=== PATIENT | female | born 1995 | race African-American/Black ===

== ENCOUNTER 2024-08-30 14:04 | Inpatient (IN) | payer BC, OTHER ==
[~2024-08-30] VITALS: Ht 152.4 cm; Wt 103.8 kg
[2024-08-30 15:36] LABS: Hematocrit 10.7 % (36.0-46.0); Mean Corpuscular Hgb Conc. 26.3 g/dL (32.0-36.0); White Blood Cell 4.5 10^3/uL (4.4-10.8)
[2024-08-30 15:38] LABS: Mean Corpuscular Hemoglobin 14.5 pg (28.0-32.0); Mean Corpuscular Volume 55.2 fL (80.0-100.0); Platelet Count (auto) 70 10^3/uL (140-450); Red Blood Cells 1.94 10^6/uL (4.0-5.20)
[2024-08-30 15:46] LABS: Chloride 106 mmol/L (98-107); Potassium 3.3 mmol/L (3.5-5.1); Sodium 138 mmol/L (136-145)
[2024-08-30 15:47] LABS: Anion Gap 10 (5-15); Calcium 9.3 mg/dL (8.7-10.4); Carbon Dioxide 22 mmol/L (20-31)
[2024-08-30 15:52] LABS: Blood Urea Nitrogen 10 mg/dL (9-23); Glucose 103 mg/dL (74-106)
[2024-08-30 16:03] LABS: Red Cell Distribution Width 28.3 % (11.8-14.3)
[2024-08-30 16:07] LABS: Hemoglobin 2.8 g/dL (12.2-16.2)
[2024-08-30 16:08] LABS: Basophils % (manual) 0 (0.0-2.0); Blast Cells 0; Eosinophils % (manual) 0 (0-7); Metamyelocytes % 0; Myelocytes % 0; Promyelocytes % 0; Reactive Lymphocytes 0
[2024-08-30 17:36] LABS: Anisocytosis Moderate; Band Neutrophils % (manual) 0; Hypochromia Marked; Lymphocytes % (manual) 28 (10.0-50.0); Monocytes % (manual) 6 (0-12); Platelet Estimate Decreased
[2024-08-30 17:37] LABS: Tear Drop Cells FEW
[2024-08-30] MEDS ORDERED: MORPHINE SULFATE INJ 2 MG/ml SYRG IV PRN (17:45)
[2024-08-30] MEDS ORDERED: ONDANSETRON HCL 4 MG/2 ML VIAL IV PRN (17:45)
[2024-08-30] MEDS ORDERED: DOCUSATE SOD 100 MG CAP PO PRN (17:45)
[2024-08-30] MEDS ORDERED: NITROGLYCERIN 0.4 MG SL TAB SL PRN (17:45)
[2024-08-30 18:26] VITALS: BP 138/60; PULSE 109; RESP 20; TEMP 98.4
[2024-08-30] MEDS: SODIUM CHLORIDE 0.9% 1,000 ML IV SCH (18:31)
[2024-08-30] MEDS: POTASSIUM CHL 20 Meq TABLET PO ONE (18:43)
[2024-08-30 18:45] VITALS: BP 125/62; PULSE 105; RESP 16; TEMP 98.1
[2024-08-30 19:20] VITALS: PULSE 110; RESP 21; O2SAT 100
[2024-08-30 20:02] LABS: Urine Bacteria FEW /hpf (None Seen); Urine Blood 3+ /uL (Negative); Urine Clarity Turbid (Clear); Urine Color Light-Brown (Yellow); Urine Protein, UAD 2+ (Negative); Urine Specific Gravity 1.013 (1.001-1.035); Urine Urobilinogen Normal (Negative); Urine WBC 3 /hpf (0 - 5); Urine pH 5.5 (5.0-9.0)
[2024-08-30 21:25] VITALS: BP 134/71; PULSE 118; RESP 24; TEMP 98.1
[2024-08-30 21:55] VITALS: BP 118/50; PULSE 103; RESP 16; TEMP 98.8
[2024-08-30 22:10] VITALS: BP 112/58; PULSE 101; RESP 19; TEMP 98.4
[2024-08-31] VITALS (10 sets, daily range): BP systolic 96–120; BP diastolic 37–62; PULSE 82–98; RESP 18–30; TEMP 98.1–98.7; O2SAT 96–100
[2024-08-31 05:05] LABS: Basophils # (auto) 0 10 ^3/uL (0-0.2); Eosinophils # (auto) 0 10 ^3/uL (0-0.8); Hemoglobin 7.3 g/dL (12.2-16.2); Lymphocytes # (auto) 1.2 10 ^3/uL (0.4-5.4); Neutrophils # (auto) 3.2 10 ^3/uL (1.6-8.6); White Blood Cell 4.8 10^3/uL (4.4-10.8)
[2024-08-31 05:08] LABS: Eosinophils % (auto) 0.7 % (0.0-7.0); Hematocrit 21.8 % (36.0-46.0); Mean Corpuscular Hemoglobin 23.6 pg (28.0-32.0); Mean Corpuscular Hgb Conc. 33.3 g/dL (32.0-36.0); Mean Corpuscular Volume 70.8 fL (80.0-100.0); Monocytes # (auto) 0.3 10 ^3/uL (0-1.3); Monocytes % (auto) 6.8 % (0.0-12.0); Neutrophils % (auto) 66.5 % (37.0-80.0); Nucleated Red Blood Cells % 0.1 %; Platelet Count (auto) 43 10^3/uL (140-450); Red Blood Cells 3.08 10^6/uL (4.0-5.20)
[2024-08-31 05:14] LABS: Red Cell Distribution Width 33.3 % (11.8-14.3)
[2024-08-31 05:22] LABS: Albumin 4.6 g/dL (3.2-4.8); Alkaline Phosphatase 86 U/L (46-116); Anion Gap 6 (5-15); Aspartate Aminotransferase < 8 U/L (13-40); BUN/Creatinine Ratio 9.5 (10.0-20.0); Bilirubin, Total 2.2 mg/dL (0.2-1.0); Blood Urea Nitrogen 7 mg/dL (9-23); Calcium 9.5 mg/dL (8.7-10.4); Carbon Dioxide 23 mmol/L (20-31); Chloride 108 mmol/L (98-107); Glucose 102 mg/dL (74-106); Potassium 4.1 mmol/L (3.5-5.1); Sodium 137 mmol/L (136-145)
[2024-08-31 05:23] LABS: Total Protein 7.2 g/dL (5.7-8.2)
[2024-08-31 05:28] LABS: Alanine Aminotransferase < 9 U/L (7-40)
[2024-08-31 08:33] LABS: Platelet Estimate Decreased
[2024-08-31 08:34] LABS: Anisocytosis Moderate; Hypochromia Moderate
[2024-08-31 08:38] LABS: Tear Drop Cells FEW
[2024-08-31] MEDS: ACETAMINOPHEN 325 MG TAB PO PRN (11:26)
[2024-08-31 15:29] LABS: INR 1.03 (0.9-1.15); Partial Thromboplastin Time 21.7 SEC (24.5-34.5); Prothrombin Time 10.9 sec (9.3-11.8)
[2024-08-31] MEDS: methylPREDNISolone SOD SUCC 125 MG/2 ML VL IV SCH (16:15)
[2024-09-01] VITALS (9 sets, daily range): BP systolic 102–125; BP diastolic 45–68; PULSE 80–97; RESP 18–26; TEMP 97.6–98.9; O2SAT 20–99
[2024-09-01 07:17] LABS: INR 1.06 (0.9-1.15); Partial Thromboplastin Time < 20.0 SEC (24.5-34.5); Prothrombin Time 11.2 sec (9.3-11.8)
[2024-09-01 07:28] LABS: % Iron Saturation 44.3 % (15-50)
[2024-09-01 07:32] LABS: Basophils # (auto) 0 10 ^3/uL (0-0.2); Eosinophils # (auto) 0 10 ^3/uL (0-0.8); Eosinophils % (auto) 0.1 % (0.0-7.0); Hemoglobin 7.1 g/dL (12.2-16.2)
[2024-09-01 07:42] LABS: Chloride 106 mmol/L (98-107); Sodium 136 mmol/L (136-145)
[2024-09-01 07:43] LABS: Anion Gap 9 (5-15); Calcium 10.3 mg/dL (8.7-10.4); Carbon Dioxide 21 mmol/L (20-31)
[2024-09-01 07:48] LABS: BUN/Creatinine Ratio 11.3 (10.0-20.0); Blood Urea Nitrogen 8 mg/dL (9-23); Glucose 133 mg/dL (74-106)
[2024-09-01 08:02] LABS: Basophils % (auto) 0.1 % (0.0-2.0); Lymphocytes # (auto) 0.5 10 ^3/uL (0.4-5.4); Lymphocytes % (auto) 10.2 % (10.0-50.0); Mean Corpuscular Hemoglobin 23.6 pg (28.0-32.0); Mean Corpuscular Hgb Conc. 33.7 g/dL (32.0-36.0); Monocytes # (auto) 0 10 ^3/uL (0-1.3); Monocytes % (auto) 0.5 % (0.0-12.0); Neutrophils # (auto) 4.6 10 ^3/uL (1.6-8.6); Neutrophils % (auto) 89.1 % (37.0-80.0); Nucleated Red Blood Cells % 0.4 %; Platelet Count (auto) 31 10^3/uL (140-450); White Blood Cell 5.1 10^3/uL (4.4-10.8)
[2024-09-01 08:03] LABS: Red Cell Distribution Width 32.5 % (11.8-14.3)
[2024-09-01 08:54] LABS: Platelet Estimate Decreased
[2024-09-01 09:05] LABS: Hepatitis B Surface Antibody Negative (Negative)
[2024-09-01 09:17] LABS: Hepatitis B Surface Antigen Negative (Negative)
[2024-09-01] MEDS ORDERED: ESTROGENS, CONJUGATED 25 MG VIAL IM SCH (10:00)
[2024-09-01] MEDS ORDERED: ONDANSETRON ODT 4 MG TAB PO PRN (10:00)
[2024-09-01] MEDS: IRON SUCROSE COMPLEX 100 ML IV SCH (15:54)
[2024-09-01] MEDS: ESTROGENS, CONJUGATED 25 MG VIAL IV SCH (18:44)
[2024-09-02] VITALS (8 sets, daily range): BP systolic 102–122; BP diastolic 42–64; PULSE 62–98; RESP 16–19; TEMP 97.8–98.6; O2SAT 94–99
[2024-09-02 08:06] LABS: Thyroxine (T4) 9.9 ug/dL (4.5-12.0)
[2024-09-02 08:49] LABS: Hematocrit 19.9 % (36.0-46.0); Mean Corpuscular Hemoglobin 23.8 pg (28.0-32.0); Mean Corpuscular Hgb Conc. 33.5 g/dL (32.0-36.0); White Blood Cell 10.8 10^3/uL (4.4-10.8)
[2024-09-02 08:57] LABS: Hemoglobin 6.7 g/dL (12.2-16.2); Red Cell Distribution Width 32.6 % (11.8-14.3)
[2024-09-02 08:59] LABS: Platelet Count (auto) 18 10^3/uL (140-450)
[2024-09-02 09:01] LABS: Basophils % (manual) 0 (0.0-2.0); Blast Cells 0; Eosinophils % (manual) 0 (0-7); Metamyelocytes % 0; Myelocytes % 0; Promyelocytes % 0; Reactive Lymphocytes 0
[2024-09-02] MEDS: GADOTERATE MEG 10 MMOL/20ml INJ (0.5MMOL/ml) IV ONE (09:36)
[2024-09-02] MEDS: GADOTERATE MEG 7.5 MMOL/15ml INJ (0.5MMOL/ml) IV ONE (09:37)
[2024-09-02 09:50] LABS: Band Neutrophils % (manual) 2; Lymphocytes % (manual) 5 (10.0-50.0); Monocytes % (manual) 2 (0-12); Platelet Estimate Markedly Decreased
[2024-09-02 09:52] LABS: Anisocytosis Marked; Hypochromia Slight; Polychromasia Slight; Tear Drop Cells FEW
[2024-09-02 11:07] LABS: Anti-Nuclear Antibody Direct Negative (Negative)
[2024-09-03] VITALS (15 sets, daily range): BP systolic 99–130; BP diastolic 48–78; PULSE 61–95; RESP 16–20; TEMP 97.7–98.4; O2SAT 92–100
[2024-09-03 08:03] LABS: Hematocrit 29.9 % (36.0-46.0); Hemoglobin 9.9 g/dL (12.2-16.2); Mean Corpuscular Hemoglobin 25.8 pg (28.0-32.0); Mean Corpuscular Hgb Conc. 33.1 g/dL (32.0-36.0); Mean Corpuscular Volume 78.1 fL (80.0-100.0); Red Blood Cells 3.83 10^6/uL (4.0-5.20); Red Cell Distribution Width 27.1 % (11.8-14.3); White Blood Cell 13.7 10^3/uL (4.4-10.8)
[2024-09-03 08:10] LABS: Basophils % (manual) 0 (0.0-2.0); Blast Cells 0; Eosinophils % (manual) 0 (0-7); Metamyelocytes % 0; Myelocytes % 0; Platelet Count (auto) 13 10^3/uL (140-450); Promyelocytes % 0; Reactive Lymphocytes 0
[2024-09-03 08:21] LABS: Anisocytosis Moderate; Band Neutrophils % (manual) 3; Lymphocytes % (manual) 7 (10.0-50.0); Monocytes % (manual) 3 (0-12)
[2024-09-03 08:22] LABS: Platelet Estimate Markedly Decreased; Tear Drop Cells FEW
[2024-09-03 08:23] LABS: Polychromasia Slight
[2024-09-03 12:06] LABS: CCP IgG/IgA Antibody 4 units (0-19)
[2024-09-03 18:22] LABS: Alanine Aminotransferase 46 U/L (7-40); Albumin 4.1 g/dL (3.2-4.8); Alkaline Phosphatase 77 U/L (46-116); Anion Gap 7 (5-15); Aspartate Aminotransferase 41 U/L (13-40); BUN/Creatinine Ratio 20.2 (10.0-20.0); Bilirubin, Direct 0.5 mg/dL (<0.3); Bilirubin, Total 1.4 mg/dL (0.2-1.0); Blood Urea Nitrogen 17 mg/dL (9-23); Calcium 9.7 mg/dL (8.7-10.4); Carbon Dioxide 27 mmol/L (20-31); Chloride 104 mmol/L (98-107); Glucose 113 mg/dL (74-106); Potassium 4.1 mmol/L (3.5-5.1); Sodium 138 mmol/L (136-145); Total Protein 6.4 g/dL (5.7-8.2)
[2024-09-03 18:34] LABS: Wright Stain Ready for Review
[2024-09-03 18:51] LABS: INR 1.16 (0.9-1.15); Prothrombin Time 12.2 sec (9.3-11.8)
[2024-09-04] VITALS (9 sets, daily range): BP systolic 108–128; BP diastolic 48–68; PULSE 51–77; RESP 18–20; TEMP 97.6–98.1; O2SAT 94–100
[2024-09-04 05:44] LABS: Basophils # (auto) 0 10 ^3/uL (0-0.2); Eosinophils # (auto) 0 10 ^3/uL (0-0.8); Nucleated Red Blood Cells % 0.1 %
[2024-09-04 05:46] LABS: Hematocrit 32.8 % (36.0-46.0); Hemoglobin 11.2 g/dL (12.2-16.2); Lymphocytes # (auto) 1.4 10 ^3/uL (0.4-5.4); Lymphocytes % (auto) 9.5 % (10.0-50.0); Mean Corpuscular Hemoglobin 27.2 pg (28.0-32.0); Mean Corpuscular Hgb Conc. 34.2 g/dL (32.0-36.0); Mean Corpuscular Volume 79.4 fL (80.0-100.0); Monocytes # (auto) 0.5 10 ^3/uL (0-1.3); Monocytes % (auto) 3.4 % (0.0-12.0); Neutrophils # (auto) 13.1 10 ^3/uL (1.6-8.6); Neutrophils % (auto) 87.1 % (37.0-80.0); Red Blood Cells 4.13 10^6/uL (4.0-5.20); Red Cell Distribution Width 24.9 % (11.8-14.3)
[2024-09-04 06:26] LABS: Platelet Count (auto) 18 10^3/uL (140-450)
[2024-09-04 08:13] LABS: Anisocytosis Moderate; Platelet Estimate Markedly Decreased; Polychromasia Slight; Tear Drop Cells FEW
[2024-09-05] VITALS (8 sets, daily range): BP systolic 104–157; BP diastolic 50–81; PULSE 50–75; RESP 17–20; TEMP 97.7–98.4; O2SAT 94–96
[2024-09-05 11:21] LABS: Folate (Folic Acid) 13.93 ng/mL (>5.38)
[2024-09-05] MEDS: LIDOCAINE 2%HCL (LOCAL ANESTH.) INJ 10ml MDV ONE (11:25)
[2024-09-05] MEDS: MIDAZOLAM HCL 2MG/2ML 2ml VIAL (1mg/ml) IV ONE (11:25)
[2024-09-05] MEDS: BUPIVACAINE HCL 0.25% P/F 10 ML VIAL ONE (11:25)
[2024-09-05] MEDS: fentaNYL CITRATE 100 MCG/2 ML VL IV ONE (11:25)
[2024-09-05 13:06] LABS: Dilute Prothrombin Time(dPT) 38.6 sec (0.0-47.6); PTT-LA 30.5 sec (0.0-43.5); dPT Confirm Ratio 1.11 Ratio (0.00-1.34); dRVVT 40.8 sec (0.0-47.0)
[2024-09-05 14:02] LABS: Basophils # (auto) 0 10 ^3/uL (0-0.2); Eosinophils # (auto) 0 10 ^3/uL (0-0.8); Hemoglobin 11.8 g/dL (12.2-16.2); Monocytes # (auto) 0.6 10 ^3/uL (0-1.3)
[2024-09-05 14:05] LABS: Hematocrit 35.1 % (36.0-46.0); Lymphocytes # (auto) 1.1 10 ^3/uL (0.4-5.4); Lymphocytes % (auto) 5.7 % (10.0-50.0); Mean Corpuscular Hemoglobin 27.1 pg (28.0-32.0); Mean Corpuscular Hgb Conc. 33.7 g/dL (32.0-36.0); Mean Corpuscular Volume 80.3 fL (80.0-100.0); Monocytes % (auto) 3.3 % (0.0-12.0); Neutrophils # (auto) 17.5 10 ^3/uL (1.6-8.6); Platelet Count (auto) 42 10^3/uL (140-450); Red Blood Cells 4.37 10^6/uL (4.0-5.20); White Blood Cell 19.2 10^3/uL (4.4-10.8)
[2024-09-05 14:06] LABS: Lupus Interpretation Comment: (.)
[2024-09-05 15:37] LABS: Anisocytosis Moderate
[2024-09-05 15:38] LABS: Ovalocytes FEW; Platelet Estimate Decreased; Tear Drop Cells FEW
[2024-09-05] MEDS: HYDROcodone-ACET 5/325MG TAB PO PRN (20:15)
[2024-09-06] VITALS (7 sets, daily range): BP systolic 108–137; BP diastolic 58–71; PULSE 51–81; RESP 17–20; TEMP 97.6–98.4; O2SAT 93–96
[2024-09-06 07:38] LABS: Mean Corpuscular Hemoglobin 26.9 pg (28.0-32.0); White Blood Cell 18.5 10^3/uL (4.4-10.8)
[2024-09-06 07:40] LABS: Hematocrit 35.2 % (36.0-46.0); Mean Corpuscular Hgb Conc. 34.1 g/dL (32.0-36.0); Platelet Count (auto) 60 10^3/uL (140-450); Red Blood Cells 4.45 10^6/uL (4.0-5.20); Red Cell Distribution Width 26.3 % (11.8-14.3)
[2024-09-06 07:43] LABS: Basophils % (manual) 0 (0.0-2.0); Blast Cells 0; Eosinophils % (manual) 0 (0-7); Metamyelocytes % 0; Myelocytes % 0; Promyelocytes % 0; Reactive Lymphocytes 0
[2024-09-06 07:55] LABS: Alanine Aminotransferase 60 U/L (7-40); Albumin 3.7 g/dL (3.2-4.8); Alkaline Phosphatase 65 U/L (46-116); Anion Gap 6 (5-15); Aspartate Aminotransferase 16 U/L (13-40); BUN/Creatinine Ratio 20.2 (10.0-20.0); Bilirubin, Total 1.5 mg/dL (0.2-1.0); Blood Urea Nitrogen 19 mg/dL (9-23); Calcium 9.5 mg/dL (8.7-10.4); Carbon Dioxide 29 mmol/L (20-31); Chloride 103 mmol/L (98-107); Glucose 135 mg/dL (74-106); Potassium 4.3 mmol/L (3.5-5.1); Sodium 138 mmol/L (136-145); Total Protein 5.9 g/dL (5.7-8.2)
[2024-09-06 08:06] LABS: Haptoglobin 160 mg/dL (33-278)
[2024-09-06 09:01] LABS: Band Neutrophils % (manual) 1; Lymphocytes % (manual) 4 (10.0-50.0); Monocytes % (manual) 2 (0-12)
[2024-09-06 09:02] LABS: Anisocytosis Slight; Platelet Estimate Decreased; Tear Drop Cells FEW
[2024-09-06 09:03] LABS: Ovalocytes FEW
[2024-09-07 01:00] VITALS: BP 109/58; PULSE 67; RESP 16; TEMP 97.9; O2SAT 94
[2024-09-07 05:00] VITALS: BP 106/62; PULSE 89; RESP 16; TEMP 97.8; O2SAT 100
[2024-09-07 08:50] VITALS: BP 111/63; PULSE 82; RESP 20; TEMP 97.9; O2SAT 96
[2024-09-07 08:50] LABS: Basophils # (auto) 0 10 ^3/uL (0-0.2); Eosinophils # (auto) 0 10 ^3/uL (0-0.8); Hematocrit 37.2 % (36.0-46.0); Hemoglobin 12.2 g/dL (12.2-16.2); Lymphocytes % (auto) 4.2 % (10.0-50.0); Mean Corpuscular Hemoglobin 26.9 pg (28.0-32.0); Mean Corpuscular Hgb Conc. 32.9 g/dL (32.0-36.0); Mean Corpuscular Volume 81.6 fL (80.0-100.0); Monocytes # (auto) 0.8 10 ^3/uL (0-1.3); Monocytes % (auto) 3.4 % (0.0-12.0); Neutrophils # (auto) 21.3 10 ^3/uL (1.6-8.6); Neutrophils % (auto) 92.4 % (37.0-80.0); Nucleated Red Blood Cells % 0.2 %; Platelet Count (auto) 73 10^3/uL (140-450); Red Blood Cells 4.55 10^6/uL (4.0-5.20); White Blood Cell 23.1 10^3/uL (4.4-10.8)
[2024-09-07 08:53] LABS: Red Cell Distribution Width 25.4 % (11.8-14.3)
[2024-09-07 09:30] LABS: Anisocytosis Moderate; Platelet Estimate Decreased
[2024-09-07 09:31] LABS: Polychromasia Slight
[2024-09-07 09:32] LABS: Ovalocytes FEW
[2024-09-07] MEDS ORDERED: FAMO20TA10 PO (10:10)
[2024-09-07] MEDS ORDERED: PRED20TA2 PO (10:10)
[2024-09-07 13:00] VITALS: BP 112/68; PULSE 77; RESP 20; TEMP 98.1; O2SAT 94
[2024-09-07 18:06] LABS: Fibrin Degredation Products <5 ug/mL (<5)
== END 2024-09-07 12:34 | disposition home or self-care (01) | DRG 812 ==
LOC: ER 14:16 → TELE 17:41 → TELE-CENTR 08-31 11:42 → CENTRAL 09-01 22:19
PROVIDERS: ADMIT Internal Medicine; ATTEND Internal Medicine
PROC: 30233N1 Transfusion of Nonautologous Red Blood Cells into Peripheral Vein, Percutaneous Approach (ICD-10-PCS; 2024-08-30)
PROC: 30233R1 Transfusion of Nonautologous Platelets into Peripheral Vein, Percutaneous Approach (ICD-10-PCS; 2024-09-03)
PROC: 079T3ZX Drainage of Bone Marrow, Percutaneous Approach, Diagnostic (ICD-10-PCS; principal; 2024-09-05)
DX: D50.9 Iron deficiency anemia, unspecified (principal); D61.818 Other pancytopenia; D69.3 Immune thrombocytopenic purpura; C85.90 Non-Hodgkin lymphoma, unspecified, unspecified site; Z68.41 Body mass index [BMI] 40.0-44.9, adult; E87.6 Hypokalemia; N92.0 Excessive and frequent menstruation with regular cycle; E66.01 Morbid (severe) obesity due to excess calories; K80.20 Calculus of gallbladder without cholecystitis without obstruction
CPT/HCPCS: 10005; 36415; 36430; 72192; 74176; 74183; 76700; 76856; 77012; 80048; 80053; 81001; 82248; 82607; 82746; 83010; 83540; 83550; 83615; 84436; 84443; 85007; 85025; 85027; 85045; 85362; 85384; 85610; 85613; 85670; 85705; 85730; 85732; 86038; 86200; 86703; 86706; 86803; 86850; 86880; 86900; 86901; 86920; 87340; 99291; G0378; J1756; J2003; J2250; J3490

== ENCOUNTER 2025-09-24 12:12 | Inpatient (IN) | payer BC ==
[~2025-09-24] VITALS: Ht 152.4 cm; Wt 106.2 kg
[2025-09-24] VITALS (8 sets, daily range): BP systolic 134–149; BP diastolic 74–84; PULSE 68–94; RESP 15–21; TEMP 97.7–98.8; O2SAT 99–100
[2025-09-24] MEDS: OCTREOTIDE ACETATE 500 MCG in SODIUM CHL 0.9% 99 ML IV SCH (02:27)
[~2025-09-24 12:12] MED LIST: FAMO20TA10 PO; PRED20TA2 PO
--- NOTE | 2025-09-24 13:22 | ED.PDOC ---
History of Present Illness HPI Comments This is a 30-year-old female, with a PMHx of Anemia, who presents to the ED with a chief complaint of wellness check. Patient states she was seen by her PCP recently, and told her hemoglobin levels are low. Patient reports she feels similar to how she did last year when she was diagnosed with severe anemia. Patient has no further complaints at this time and otherwise denies further associated symptoms of LOC, dizziness, weakness, fatigue, fever, or chills. Chief Complaint: Abnormal LAB's Time Seen by MD: 12:40 Primary Care Provider: MK Reviewed Notes: Medications, Allergies Allergies: Coded Allergies: NO KNOWN ALLERGIES (Unverified , 08/30/24) Home Meds Active Scripts Famotidine (PEPCID TABLET) 20 Mg Tb, 1 TAB PO BID for 30 Days, #60 TAB 1 Refill Prov:ROBIN NEUMANN MD 09/07/24 Prednisone (Prednisone) 20 Mg Tab, 20 MG PO TID for 20 Days, #120 MG Prov:ROBIN NEUMANN MD 09/07/24 Information Source: Patient Mode of Arrival: Ambulatory Severity: Moderate Duration: Since onset Past Medical History PAST MEDICAL HISTORY: Anemia Surgical History: Denies all surgeries T[place] MARSHAL History: No Pertinent [place] MARSH[place] History Social History Smoker: Non-Smoker Alcohol: Denies ETOH Use Drugs: Denies Drug Use Constitutional: denies: chills, diaphoresis, fatigue, fever, malaise, sweats, weakness, others EENTM: denies: blurred vision, double vision, ear bleeding, ear discharge, ear drainage, ear pain, ear ringing, eye pain, eye redness, hearing loss, mouth pain, mouth swelling, nasal discharge, nose bleeding, nose congestion, nose pain, photophobia, tearing, throat pain, throat swelling, voice changes, others Respiratory: denies: cough, hemoptysis, orthopnea, SOB at rest, shortness of breath, SOB with excertion, stridor, wheezing, others Cardiovascular: denies: chest pain, dizzy spells, diaphoresis, Dyspnea on exertion, edema, irregular heart beat, left arm pain, lightheadedness, palpitations, PND, syncope, others Gastrointestinal: denies: abdomen distended, abdominal pain, blood streaked bowels, constipated, diarrhea, dysphagia, difficulty swallowing, hematemesis, melena, nausea, poor appetite, poor fluid intake, rectal bleeding, rectal pain, vomiting, others Genitourinary: denies: abnormal vagina bleeding, burning, dyspareunia, dysuria, flank pain, frequency, hematuria, incontinence, pain, , vagina discharge, urgency, others Neurological: denies: dizziness, fainting, headache, left sided numbness, left sided weakness, numbness, paresthesia, pre-existing deficit, right sided numbness, right sided weakness, seizure, speech problems, tingling, tremors, weakness, others Musculoskeletal: denies: back pain, gout, joint pain, joint swelling, muscle pain, muscle stiffness, neck pain, others Integumetry: denies: bruises, change in color, change in hair/nails, dryness, laceration, lesions, lumps, rash, wounds, others Allergic/Immunocompromised: denies: Difficulty Healing, Frequent Infections, Hives, Itching, others Hematologic/Lymphatic: denies: anemia, blood clots, easy bleeding, easy bruising, swollen glands, others Endocrine: denies: excessive hunger, excessive sweating, excessive thirst, excessive urination, flushing, intolerance to cold, intolerance to heat, unexplained weight gain, unexplained weight loss, others Psychiatric: denies: anxiety, bipolar disorder, depression, hopeless, panic disorder, schizophrenia, sleepless, suicidal, others All Other Systems: Reviewed and Negative Physical Exam General Appearance: Moderate Distress HEENT: Normal ENT Inspection, Pharynx Normal, TMs Normal Neck: Full Range of Motion, Non-Tender, Normal, Normal Inspection Respiratory: Chest Non-Tender, Lungs Clear, No Accessory Muscle Use, No Respiratory Distress, Normal Breath Sounds Cardiovascular: No Edema, No JVD, No Murmur, No Gallop, Normal Peripheral Pulses, Regular Rate/Rhythm Breast Exam: Deferred Gastrointestinal: No Organomegaly, Non Tender, No Pulsatile Mass, Normal Bowel Sounds, Soft Genitalia: Deferred Pelvic: Deferred Rectal: Deferred Extremities: No calf tenderness, Normal capillary refill, Normal inspection, Normal range of motion, Non-tender, No pedal edema Musculoskeletal : Apperance: Normal Neurologic: Alert, poultry farmer II-XII nml as Tested, No Motor Deficits, Normal Affect, Normal Mood, No Sensory Deficits Cerebellar Function: Normal Reflexes: Normal Skin: Pallor Peripheral Pulses: 3+ Radial (R), 3+ Radial (L) Lymphatic: No Adenopathy Was a procedure done? Was a procedure done?: No Differential Dx Considerations may include: Anemia X-Ray, Labs, Meds, VS Vital Signs Date Time Temp Pulse Resp B/P (MAP) Pulse Ox O2 Delivery O2 Flow Rate FiO2 09/24/25 12:13 98.7 116 16 137/80 97 98.7 Lab Test 09/24/25 14:05 Range/Units White Blood Count 9.4 4.4-10.8 10^3/uL Red Blood Count 3.62 L 4.0-5.20 10^6/uL Hemoglobin 5.5 *L 12.2-16.2 g/dL Hematocrit 20.3 L 36.0-46.0 % Mean Corpuscular Volume 56.0 L 80.0-100.0 fL Mean Corpuscular Hemoglobin 15.2 L 28.0-32.0 pg Mean Corpuscular Hemoglobin Concent 27.2 L 32.0-36.0 g/dL Red Cell Distribution Width 25.8 H 11.8-14.3 % Platelet Count 555 H 140-450 10^3/uL Mean Platelet Volume 8.6 6.9-10.8 fL Neutrophils (%) (Auto) 69.2 37.0-80.0 % Lymphocytes (%) (Auto) 21.9 10.0-50.0 % Monocytes (%) (Auto) 7.3 0.0-12.0 % Eosinophils (%) (Auto) 0.7 0.0-7.0 % Basophils (%) (Auto) 0.9 0.0-2.0 % Neutrophils # (Auto) 6.5 1.6-8.6 10 ^3/uL Lymphocytes # (Auto) 2.1 0.4-5.4 10 ^3/uL Monocytes # (Auto) 0.7 0-1.3 10 ^3/uL Eosinophils # (Auto) 0.1 0-0.8 10 ^3/uL Basophils # (Auto) 0.1 0-0.2 10 ^3/uL Nucleated Red Blood Cells 0.5 % Platelet Estimate Increased Hypochromasia (manual) Marked Anisocytosis (manual) Moderate Microcytosis Marked Ovalocytes Few Stomatocytes Few Sodium Level 140 136-145 mmol/L Potassium Level 3.8 3.5-5.1 mmol/L Chloride Level 106 98-107 mmol/L Carbon Dioxide Level 26 20-31 mmol/L Anion Gap 8 5-15 Blood Urea Nitrogen 11 9-23 mg/dL Creatinine 0.80 0.550-1.02 mg/dL Glomerular Filtration Rate Calc 102 >90 mL/min BUN/Creatinine Ratio 13.8 10.0-20.0 Serum Glucose 100 74-106 mg/dL Calcium Level 8.9 8.7-10.4 mg/dL Patient alert. Vitals stable. States that she has a anemia. Answering questions. Ambulating. Denies any bleeding. Last time she had blood transfusion was year ago. Hemoglobin is low. Establish intravenous access. Was given blood transfusion. Explained to the patient. Continue monitoring. Time of 1ST Reevaluation: 14:00 Reevaluation 1ST: Unchanged Patient Education/Counseling: Diagnosis, Treatment Family Education/Counseling: No Family Present SEPSIS Sepsis Screen Date sepsis recognized/suspect: Sep 24, 2025 Time Sepsis recognized/suspect: 1213 Recent Procedure: No On Antibiotic Therapy: No Respiratory Rate >20: No Heart Rate >90: Yes Temp<36 C (96.8 F) or >38.3 C: No SBP <90 or MAP <65 mmHG: No New Acute Mental Status Change: No Is the patient on CPAP, BIPAP,: No Physician Orders Urinalysis (09/24/25 13:59) Vital Signs Date Time Temp Pulse Resp B/P (MAP) Pulse Ox O2 Delivery O2 Flow Rate FiO2 09/24/25 12:13 98.7 116 16 137/80 97 98.7 Laboratory Tests Test 09/24/25 14:05 White Blood Count 9.4 10^3/uL (4.4-10.8) Departure 1 Departure Time of Disposition: 15:12 Impression: Primary Impression: Severe anemia Disposition: ADMITTED INPATIENT Admit to: Med Surg Condition: Guarded Critical Care Note Critical Care Time?: Yes (90 min-critical care time only) Stability Stability form required: No Heart Score Heart Score: Heart Score Response (Comments) Value History N/A 0 EKG N/A 0 Age N/A 0 Risk Factors N/A 0 Troponin N/A 0 Total 0 I personally scribed for DALILA TRINIDAD MD ([email or web address]) on 09/24/25 at 13:22. Electronically submitted by Isa Webster ([facility]). DALILA TRINIDAD MD Sep 24, 2025 13:22
[2025-09-24 14:20] LABS: Hematocrit 20.3 % (36.0-46.0)
[2025-09-24 14:22] LABS: Mean Corpuscular Hemoglobin 15.2 pg (28.0-32.0); Mean Corpuscular Volume 56.0 fL (80.0-100.0); Nucleated Red Blood Cells % 0.5 %
[2025-09-24 14:26] LABS: Hemoglobin 5.5 g/dL (12.2-16.2)
[2025-09-24 14:31] LABS: Chloride 106 mmol/L (98-107); Potassium 3.8 mmol/L (3.5-5.1); Sodium 140 mmol/L (136-145)
[2025-09-24 14:32] LABS: Anion Gap 8 (5-15); Carbon Dioxide 26 mmol/L (20-31)
[2025-09-24 14:33] LABS: Calcium 8.9 mg/dL (8.7-10.4)
[2025-09-24 14:38] LABS: BUN/Creatinine Ratio 13.8 (10.0-20.0); Blood Urea Nitrogen 11 mg/dL (9-23); Glucose 100 mg/dL (74-106)
[2025-09-24 14:42] LABS: Anisocytosis Moderate
[2025-09-24 14:43] LABS: Ovalocytes FEW; Stomatocytes Few
--- NOTE | 2025-09-24 17:51 | DVHHPRES ---
History of Present Illness Resident Creating Document: ROBERTH DIGGS RESIDENT History of Present Illness Amira Galaviz is a 30-year-old female patient who presents to the ED with chief complain of dyspnea, generalized weakness which started one month ago in progress in the last week with nausea, vomiting and diarrhea (emesis was nonbloody in orange/yellowish color), prompting her visit to the ED. Patient reports menorrhagia, normally she complete between two weeks to two months, her last. Started on the 30 of August and finish after seven days (per patient it is a short period). He does not follow with an local company hazmat driver, has never been on oral contraceptive medication, she denies any hematemesis, melena, hematochezia or any kind in a bleeding. 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 Her periods last between two weeks to two months, her cycles are irregular, oligomenorrhea. Family history: Noncontributory Social history: Lives in [place] with family (next of kin is sister). Denies current tobacco, alcohol and other drug abuse Allergies: Denies Home medication: Escitalopram Patient seen and examined at bedside. Currently has no new complaints. Patient admitted to telemetry due to severe anemia, requiring on ED visit transfusion of 2 units of PRBCs. Ordered complementary workup for severe anemia. Past Medical History Per HPI Past Surgical History Per HPI Family History Per HPI Past Social History Per HPI Review of Systems Review of Systems Per HPI Allergies: Coded Allergies: NO KNOWN ALLERGIES (Unverified , 08/30/24) Exam Vital Signs Vital Signs Date Time Temp Pulse Resp B/P (MAP) Pulse Ox O2 Delivery O2 Flow Rate FiO2 09/24/25 17:30 74 09/24/25 17:08 98.0 16 134/75 98.0 09/24/25 16:53 100 09/24/25 15:20 Room Air* 0 21 Exam Patient lying in bed, in no acute distress General: Lucid, afebrile, mucosae are dry, conjunctivae and mucosa membranes are pale. Cardiovascular: Normal S1 and S2. No murmurs, gallops or rubs Respiratory: Normal ventilation mechanics. Clear lung sounds on auscultation Abdomen: Soft, nontender, no organomegaly, normal bowel sounds MSK/skin: Mobilizes 4 limbs. Skin is dry and warm Neurological: Oriented in 3 spheres. No motor no sensitive deficits. Pupils are isocoric and reactive Labs/Xrays Labs Test 09/24/25 14:05 Range/Units White Blood Count 9.4 4.4-10.8 10^3/uL Red Blood Count 3.62 L 4.0-5.20 10^6/uL Hemoglobin 5.5 *L 12.2-16.2 g/dL Hematocrit 20.3 L 36.0-46.0 % Mean Corpuscular Volume 56.0 L 80.0-100.0 fL Mean Corpuscular Hemoglobin 15.2 L 28.0-32.0 pg Mean Corpuscular Hemoglobin Concent 27.2 L 32.0-36.0 g/dL Red Cell Distribution Width 25.8 H 11.8-14.3 % Platelet Count 555 H 140-450 10^3/uL Mean Platelet Volume 8.6 6.9-10.8 fL Neutrophils (%) (Auto) 69.2 37.0-80.0 % Lymphocytes (%) (Auto) 21.9 10.0-50.0 % Monocytes (%) (Auto) 7.3 0.0-12.0 % Eosinophils (%) (Auto) 0.7 0.0-7.0 % Basophils (%) (Auto) 0.9 0.0-2.0 % Neutrophils # (Auto) 6.5 1.6-8.6 10 ^3/uL Lymphocytes # (Auto) 2.1 0.4-5.4 10 ^3/uL Monocytes # (Auto) 0.7 0-1.3 10 ^3/uL Eosinophils # (Auto) 0.1 0-0.8 10 ^3/uL Basophils # (Auto) 0.1 0-0.2 10 ^3/uL Nucleated Red Blood Cells 0.5 % Platelet Estimate Increased Hypochromasia (manual) Marked Anisocytosis (manual) Moderate Microcytosis Marked Ovalocytes Few Stomatocytes Few Sodium Level 140 136-145 mmol/L Potassium Level 3.8 3.5-5.1 mmol/L Chloride Level 106 98-107 mmol/L Carbon Dioxide Level 26 20-31 mmol/L Anion Gap 8 5-15 Blood Urea Nitrogen 11 9-23 mg/dL Creatinine 0.80 0.550-1.02 mg/dL Glomerular Filtration Rate Calc 102 >90 mL/min BUN/Creatinine Ratio 13.8 10.0-20.0 Serum Glucose 100 74-106 mg/dL Calcium Level 8.9 8.7-10.4 mg/dL SEPSIS Sepsis Screen Date sepsis recognized/suspect: Sep 24, 2025 Time Sepsis recognized/suspect: 1212 Recent Procedure: No On Antibiotic Therapy: No Respiratory Rate >20: No Heart Rate >90: Yes Temp<36 C (96.8 F) or >38.3 C: No SBP <90 or MAP <65 mmHG: No New Acute Mental Status Change: No Is the patient on CPAP, BIPAP,: No Physician Orders Urinalysis (09/24/25 13:59) Type And Screen (09/24/25 15:09) Vital Signs Date Time Temp Pulse Resp B/P (MAP) Pulse Ox O2 Delivery O2 Flow Rate FiO2 09/24/25 17:30 74 09/24/25 17:08 98.0 68 16 134/75 98.0 09/24/25 16:53 97.9 70 15 137/74 (95) 100 97.9 09/24/25 16:48 97.9 70 15 137/74 97.9 09/24/25 15:20 94 21 134/40 (71) 100 09/24/25 15:20 94 21 100 Room Air* 0 21 09/24/25 12:13 98.7 116 16 137/80 97 98.7 Laboratory Tests Test 09/24/25 14:05 White Blood Count 9.4 10^3/uL (4.4-10.8) Assessment/Plan Assessment/Plan ASSESSMENT Severe anemia Microcytic anemia Menorrhagia/oligomenorrhea Cholelithiasis Hepatic steatosis Left abdominal mass - unknown etiology History of ITP-status post bone marrow biopsy (patient reports within normal limits) Depression Morbid obesity PLAN Admit patient to telemetry Required 2 units of PRBCs Ordered anemia workup Consulted local company hazmat driver for further management of menorrhagia Pelvic ultrasound within normal limits Abdomen ultrasound shows cholelithiasis, hepatic steatosis, and hypoechoic structure with internal echoes above left kidney inferior to spleen which may represent pancreatic cysts (consider MRI). Patient has previous abdomen and pelvis CT which showed left abdominal mass of unknown etiology. Consider MRI for further evaluation. Goals of care discussed with patient for over 18 minutes: Full code status Discussed plan with Dr. WEST, patient and nurses: We will admit to telemetry. Indicated 2 units of PRBCs for severe anemia. Ordered anemia workup. Consulted local company hazmat driver for input regarding oligomenorrhea and menorrhagia. Patient has poor prognosis Plan discussed with: Patient, Other (Nurses) Date of Service: Sep 24, 2025 Billing Provider: ISAIAH VORA MD Common Visit Codes: 53133-RMGRRIH INP/OBS CARE (HIGH) Secondary Visit Codes: [id number] CARE PLAN 30 MINUTES ROBERTH DIGGS RESIDENT Sep 24, 2025 17:51
[2025-09-24] MEDS ORDERED: MORPHINE SULFATE INJ 2 MG/ml SYRG IV PRN (18:00)
[2025-09-24 18:42] LABS: Alanine Aminotransferase 16.0 U/L (7-40); Albumin 4.5 g/dL (3.2-4.8); Alkaline Phosphatase 105.0 U/L (46-116); Bilirubin, Direct 0.2 mg/dL (<0.3); Bilirubin, Total 0.5 mg/dL (0.2-1.0); Total Protein 7.5 g/dL (5.7-8.2)
--- NOTE | 2025-09-24 18:44 | DVH ---
INDICATION: Rule out fibroids TECHNIQUE: Multiple real-time grayscale transabdominal sonographic images along with color and duplex Doppler of the uterus and ovaries were obtained. COMPARISON: CT PELVIS WO CONTRAST on DOS: 09/05/24, US PELVIC on DOS: 08/31/24 FINDINGS: The uterus measures 3.2 x 4 x 3.9 cm cm. The endometrial stripe measures 9.3 mm. The right ovary measures 3.2 x 2.4 x 3.5 cm. Volume of the right ovary is 13.9 cc. The left ovary measures 2.8 x 2.1 x 2.7 cm. Volume of the left ovary is 8.3 cc Subsequent color and duplex Doppler interrogation of the ovaries demonstrated symmetric vascular flow to both ovaries, though this does not exclude the possibility of torsion due to the dual blood suppl y. IMPRESSION: 1. Grossly unremarkable pelvic ultrasound. 2. Normal doppler imaging of both ovaries.
[2025-09-24 18:53] LABS: INR 1.0 (0.9-1.15); Partial Thromboplastin Time 23.2 SEC (24.5-34.5); Prothrombin Time 10.6 sec (9.3-11.8)
[2025-09-24 18:56] LABS: Magnesium 2.0 mg/dL (1.6-2.6); Triglycerides 132.0 mg/dL (< 150)
--- NOTE | 2025-09-24 18:57 | DVH ---
INDICATION: R/o liver cirrhosis TECHNIQUE: Multiple real-time sonographic images of the abdomen were obtained. COMPARISON: None FINDINGS: Parenchyma appears heterogeneous with changes suggesting steatosis The liver measures 12.9 cm. No intrahepatic biliary ductal dilatation is noted. The gallbladder wall measures 0.22 cm and is unremarkable. Gallstones in the gallbladder. The comm on duct measures 0.45 cm and is unremarkable. No pericholecystic fluid is noted. Negative sonographi c Salmeron's sign The right kidney measures 10.1 cm. No hydronephrosis. The left kidney measures 10.2 cm. No hydronep hrosis. Hypoechoic structure with internal echoes seen superior to the left kidney but inferior to the spleen may represent cyst. This is incompletely evaluated on this study. The pancreas is not well visualized due to obscuration from bowel gas. The visualized portions of the IVC and aorta are grossly unremarkable. IMPRESSION: 1. Cholelithiasis 2. 12.9 cm liver with findings suggesting steatosis. 3. Right kidney measures 10.1 cm. Left kidney measures 10.2 cm. 4. Hypoechoic structure with internal echoes noted above the left kidney inferior to the spleen may r epresent a pancreatic cyst consider MRI for further evaluation.
[2025-09-24 18:58] LABS: Cholesterol 189.0 mg/dL (< 200)
[2025-09-24] MEDS: PANTOPRAZOLE 80 MG in SODIUM CHL 0.9% 100 ML IV ONE (18:58)
[2025-09-24] MEDS: SODIUM CHLORIDE 0.9% 1,000 ML IV ONE (18:58)
[2025-09-24 19:01] LABS: HDL Cholesterol 37.0 mg/dL (40-59)
[2025-09-24 19:18] LABS: Lipase 30.0 U/L (12-53)
[2025-09-24] MEDS: PANTOPRAZOLE 40mg/50ML NS AE 50 ML IV SCH (19:43)
[2025-09-24 22:16] LABS: Urine Protein, UAD Negative (Negative)
[2025-09-24 22:33] LABS: Amphetamine Screen, Urine Neg (NEGATIVE); Barbiturate Scree,Urine Neg (NEGATIVE); Benzodiazephine Screen, Urine Neg (NEGATIVE); Cannabinoid Screen, Urine Neg (NEGATIVE); Cocaine Screen, Urine Neg (NEGATIVE); Opiate Scree,Urine Pos (NEGATIVE); Phencyclidine Screen, Urine Neg (NEGATIVE)
[2025-09-24] MEDS ORDERED: ESCI1TAB37 PO (23:40)
[2025-09-25] VITALS (7 sets, daily range): BP systolic 114–129; BP diastolic 62–69; PULSE 73–92; RESP 16–17; TEMP 97.3–98.1; O2SAT 95–100
[2025-09-25] MEDS: SODIUM CHLORIDE 0.9% 1,000 ML IV SCH (00:06)
[2025-09-25] MEDS: POTASSIUM PHOSPHATE 22 MEQ in SODIUM CHL 0.9% 100 ML IV ONE (01:40)
[2025-09-25] MEDS: OCTREOTIDE ACETATE 100 MCG in SODIUM CHL 0.9% 50 ML IV ONE (01:57)
[2025-09-25 01:58] LABS: Hemoglobin 7.7 g/dL (12.2-16.2); Mean Corpuscular Hemoglobin 18.0 pg (28.0-32.0); Mean Corpuscular Volume 61.4 fL (80.0-100.0)
[2025-09-25 02:00] LABS: Hematocrit 26.3 % (36.0-46.0); Nucleated Red Blood Cells % 0.7 %
[2025-09-25 02:18] LABS: Total Iron Binding Capacity 397.0 ug/dL (250-425)
[2025-09-25 02:20] LABS: Alanine Aminotransferase 17 U/L (7-40); Albumin 4.2 g/dL (3.2-4.8); Alkaline Phosphatase 100 U/L (46-116); Anion Gap 9 (5-15); BUN/Creatinine Ratio 11.4 (10.0-20.0); Calcium 8.9 mg/dL (8.7-10.4); Carbon Dioxide 25 mmol/L (20-31); Chloride 106 mmol/L (98-107); Glucose 89 mg/dL (74-106); Potassium 3.8 mmol/L (3.5-5.1); Sodium 140 mmol/L (136-145); Total Protein 7.0 g/dL (5.7-8.2)
[2025-09-25 02:21] LABS: Bilirubin, Total 1.3 mg/dL (0.2-1.0); Blood Urea Nitrogen 8 mg/dL (9-23); Iron 25.0 ug/dL (50-170)
[2025-09-25 02:22] LABS: Ferritin 3.7 ng/mL (10-291)
[2025-09-25] MEDS: ONDANSETRON HCL 4 MG/2 ML VIAL IV PRN (02:27)
[2025-09-25 02:37] LABS: Anisocytosis Marked
[2025-09-25 02:38] LABS: Ovalocytes FEW; Stomatocytes Few
[2025-09-25 02:41] LABS: Wright Stain Ready for Review
[2025-09-25] MEDS: OCTREOTIDE ACETATE 500 MCG/ML VL ONE (04:50)
[2025-09-25] MEDS: OCTREOTIDE ACETATE 100 MCG/ML VL ONE (04:50)
[2025-09-25] MEDS: ACETAMINOPHEN 325 MG TAB PO PRN (08:14)
--- NOTE | 2025-09-25 14:37 | DVHPN2 ---
Reviewed: H&P Changes from previous H/P or p: No Changes General: Per HPI Objective Vitals Vital Signs Date Time Temp Pulse Resp B/P (MAP) Pulse Ox O2 Delivery O2 Flow Rate FiO2 09/25/25 08:00 98 Room Air* 0 21 09/25/25 08:00 76 09/25/25 05:00 97.5 17 116/62 (80) 97.5 Intake/Output Intake and Output 09/25/25 07:00 Intake Total 973 ml Balance 973 ml Intake Oral 0 ml IV Total 133 ml Blood Product 840 ml # Voids 1 Exam General: Lucid, afebrile, mucosae are dry, conjunctivae and mucosa membranes are pale. Cardiovascular: Normal S1 and S2. No murmurs, gallops or rubs Respiratory: Normal ventilation mechanics. Clear lung sounds on auscultation Abdomen: Soft, nontender, no organomegaly, normal bowel sounds MSK/skin: Mobilizes 4 limbs. Skin is dry and warm Neurological: Oriented in 3 spheres. No motor no sensitive deficits. Pupils are isocoric and reactive Medications Current Medications Medications Dose Ordered Sig/Cosmo Route Start Time Stop Time Status Last Admin Dose Admin Acetaminophen 325 mg Q4HP PRN PO 09/24/25 18:00 09/25/25 08:14 325 MG Ondansetron HCl 4 mg Q4HP PRN IV 09/24/25 18:00 09/25/25 02:27 4 MG Morphine Sulfate 2 mg Q4HPRN PRN IV 09/24/25 18:00 Sodium Chloride 1,000 ml @ 100 mls/hr Q10H IV 09/24/25 18:00 Pantoprazole Sodium 50 ml @ 10 mls/hr Q5H IV 09/24/25 18:00 09/25/25 10:19 10 MLS/HR Octreotide Acetate 500 mcg/ Sodium Chloride 100 ml @ 10 mls/hr Q10H IV 09/24/25 18:00 Laboratory Results Laboratory Tests 09/25/25 01:40 Chemistry Test 09/25/25 01:40 Albumin 4.2 g/dL (3.2-4.8) Calcium Level 8.9 mg/dL (8.7-10.4) Total Protein 7.0 g/dL (5.7-8.2) LFT Test 09/25/25 01:40 Alanine Aminotransferase (ALT) 17 U/L (7-40) Alkaline Phosphatase 100 U/L (46-116) Aspartate Amino Transferase (AST) 25 U/L (13-40) Total Bilirubin 1.3 mg/dL (0.2-1.0) H Urinalysis Test 09/24/25 22:00 Urine Color Light-yellow (Yellow) Urine Clarity Clear (Clear) Urine pH 6.0 (5.0-9.0) Urine Specific [place] 1.025 (1.001-1.035) Urine Protein Negative (Negative) Urine Ketones Negative (Negative) Urine Blood 3+ /uL (Negative) H Urine Nitrite Negative (Negative) Urine Bilirubin Negative (Negative) Urine Urobilinogen Normal mg/dL (Negative) Urine Leukocyte Esterase Negative /uL (Negative) Urine RBC 108 /hpf (0 - 4) Urine Microscopic WBC 2 /HPF (0-5) Urine Squamous Epithelial Cells Few /hpf (<5) Urine Bacteria None seen /hpf (None Seen) Urine Glucose Normal mg/dL (Normal) Labs and/or images reviewed: Labs reviewed by me, Image(s) reviewed by me Assessment/Plan Assessment/Plan 30-year-old female patient who presents to the ED with chief complain of dyspnea, generalized weakness which started one month ago in progress in the last week with nausea, vomiting and diarrhea (emesis was nonbloody in orange/yellowish color), prompting her visit to the ED. Patient reports menorrhagia, normally she complete between two weeks to two months, her last. Started on the 30 of August and finish after seven days (per patient it is a short period). 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 Stool occult blood Diagnosis: Severe anemia, , requiring blood transfusion Microcytic anemia Menorrhagia/oligomenorrhea Cholelithiasis Hepatic steatosis Left abdominal mass - unknown etiology History of ITP-status post bone marrow biopsy (patient reports within normal limits) Depression Morbid obesity Plan: Q 12 HH and H Avoid NSAIDs Continue pain meds with Continuing diet until plan for OR by director hair Tele Full code Plan discussed with: Patient My Orders Orders - ARIANNA BONILLA MD Procedure Category Date Status Time Regular Diet DIET 09/25/25 Transmitted Dinner Date of Service: Sep 25, 2025 Billing Provider: ARIANNA BONILLA MD Common Visit Codes: [id number] INP/OBS CARE(HIGH) ARIANNA BONILLA MD Sep 25, 2025 14:36
[2025-09-25 17:01] LABS: Hemoglobin 8.2 g/dL (12.2-16.2)
[2025-09-25 17:03] LABS: Hematocrit 29.0 % (36.0-46.0)
[2025-09-25] MEDS: PANTOPRAZOLE 40 MG/10 ML VIAL INJ IV SCH (22:34)
[2025-09-26 01:00] VITALS: BP 112/78; PULSE 79; RESP 18; TEMP 97.7; O2SAT 99
[2025-09-26 05:00] VITALS: BP 120/80; PULSE 77; RESP 18; TEMP 97.6; O2SAT 98
[2025-09-26 07:19] LABS: Hematocrit 25.0 % (36.0-46.0); Hemoglobin 7.5 g/dL (12.2-16.2)
[2025-09-26 08:00] VITALS: PULSE 81
[2025-09-26 09:00] VITALS: BP 141/86; PULSE 75; RESP 16; TEMP 97.5; O2SAT 99
--- NOTE | 2025-09-26 11:12 | DVHDS2 ---
Discharge Summary Date of Admission Sep 24, 2025 at 17:50 Date of Discharge: Sep 26, 2025 Labs/Diagnostic Data: Laboratory Results Test 09/26/25 06:02 09/25/25 01:40 09/24/25 22:00 09/24/25 14:05 Hemoglobin 7.5 g/dL (12.2-16.2) Hematocrit 25.0 % (36.0-46.0) White Blood Count 10.4 10^3/uL (4.4-10.8) Red Blood Count 4.28 10^6/uL (4.0-5.20) Mean Corpuscular Volume 61.4 fL (80.0-100.0) Mean Corpuscular Hemoglobin 18.0 pg (28.0-32.0) Mean Corpuscular Hemoglobin Concent 29.3 g/dL (32.0-36.0) Red Cell Distribution Width 30.3 % (11.8-14.3) Platelet Count 470 10^3/uL (140-450) Mean Platelet Volume 9.0 fL (6.9-10.8) Neutrophils (%) (Auto) 79.7 % (37.0-80.0) Lymphocytes (%) (Auto) 12.9 % (10.0-50.0) Monocytes (%) (Auto) 6.4 % (0.0-12.0) Eosinophils (%) (Auto) 0.5 % (0.0-7.0) Basophils (%) (Auto) 0.5 % (0.0-2.0) Neutrophils # (Auto) 8.3 10 ^3/uL (1.6-8.6) Lymphocytes # (Auto) 1.3 10 ^3/uL (0.4-5.4) Monocytes # (Auto) 0.7 10 ^3/uL (0-1.3) Eosinophils # (Auto) 0 10 ^3/uL (0-0.8) Basophils # (Auto) 0.1 10 ^3/uL (0-0.2) Nucleated Red Blood Cells 0.7 % Platelet Estimate Increased Hypochromasia (manual) Marked Anisocytosis (manual) Marked Microcytosis Marked Ovalocytes Few Stomatocytes Few Reticulocyte Count (auto) 1.84 % (0.5-1.5) Haptoglobin 144 mg/dL (33-278) Sodium Level 140 mmol/L (136-145) Potassium Level 3.8 mmol/L (3.5-5.1) Chloride Level 106 mmol/L (98-107) Carbon Dioxide Level 25 mmol/L (20-31) Anion Gap 9 (5-15) Blood Urea Nitrogen 8 mg/dL (9-23) Creatinine 0.70 mg/dL (0.550-1.02) Glomerular Filtration Rate Calc 119 mL/min (>90) BUN/Creatinine Ratio 11.4 (10.0-20.0) Serum Glucose 89 mg/dL (74-106) Lactic Acid Level 0.8 mmol/L (0.4-2.0) Calcium Level 8.9 mg/dL (8.7-10.4) Iron Level 25 ug/dL (50-170) Total Iron Binding Capacity 397 ug/dL (250-425) Percent Iron Saturation 6.3 % (15-50) Ferritin 3.7 ng/mL (10-291) Total Bilirubin 1.3 mg/dL (0.2-1.0) Aspartate Amino Transferase (AST) 25 U/L (13-40) Alanine Aminotransferase (ALT) 17 U/L (7-40) Alkaline Phosphatase 100 U/L (46-116) Ammonia < 10 umol/L (11-32) Lactate Dehydrogenase 248 U/L (120-246) Total Protein 7.0 g/dL (5.7-8.2) Albumin 4.2 g/dL (3.2-4.8) Folic Acid 20.06 ng/mL (>5.38) Urine Color Light-yellow (Yellow) Urine Clarity Clear (Clear) Urine pH 6.0 (5.0-9.0) Urine Specific [place] 1.025 (1.001-1.035) Urine Protein Negative (Negative) Urine Ketones Negative (Negative) Urine Blood 3+ /uL (Negative) Urine Nitrite Negative (Negative) Urine Bilirubin Negative (Negative) Urine Urobilinogen Normal mg/dL (Negative) Urine Leukocyte Esterase Negative /uL (Negative) Urine RBC 108 /hpf (0 - 4) Urine Microscopic WBC 2 /HPF (0-5) Urine Squamous Epithelial Cells Few /hpf (<5) Urine Bacteria None seen /hpf (None Seen) Urine Glucose Normal mg/dL (Normal) Urine Opiates Screen Pos (NEGATIVE) Urine Fentanyl Screen Neg (NEGATIVE) Urine Barbiturates Screen Neg (NEGATIVE) Urine Phencyclidine Screen Neg (NEGATIVE) Urine Amphetamines Screen Neg (NEGATIVE) Urine Benzodiazepines Screen Neg (NEGATIVE) Urine Cocaine Screen Neg (NEGATIVE) Urine Cannabinoids Screen Neg (NEGATIVE) Prothrombin Time 10.6 sec (9.3-11.8) Prothrombin Time INR 1.00 (0.9-1.15) Activated Partial Thromboplast Time 23.2 SEC (24.5-34.5) Hemoglobin A1c < 3.8 % A1C (<5.7) Phosphorus Level 2.3 mg/dL (2.4-5.1) Magnesium Level 2.0 mg/dL (1.6-2.6) Direct Bilirubin 0.2 mg/dL (<0.3) C-Reactive Protein High Sensitivity 0.70 mg/dL (<1.0) Triglycerides Level 132 mg/dL (< 150) Cholesterol Level 189 mg/dL (< 200) LDL Cholesterol 138 mg/dL (< 100) HDL Cholesterol 37 mg/dL (40-59) Lipase 30 U/L (12-53) Vitamin B12 Level 498 pg/mL (211-911) Vitamin D 25-Hydroxy 11.3 ng/mL (30.0-100) Thyroid Stimulating Hormone (TSH) 1.30 uIU/mL (0.55-4.78) Beta HCG, Quantitative 1.0 mIU/mL (1.5-4.2) Other Laboratory Tests 09/26/25 06:02 09/25/25 01:40 Brief Hx & Hospital Course: 30-year-old female patient who presents to the ED with chief complain of dyspnea, generalized weakness which started one month ago in progress in the last week with nausea, vomiting and diarrhea (emesis was nonbloody in orange/yellowish color), prompting her visit to the ED. Patient reports menorrhagia, normally she complete between two weeks to two months, her last. Started on the 30 of August and finish after seven days (per patient it is a short period). 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 Stool occult blood 09/26: Patient's hemoglobin stable x2 over 24 hour, patient feels good, going to eval prior to departure. Stable for discharge today with close follow up with PCP and an urgent referral for ob gyn physician assistant. Defer OCP discussion to ob gyn physician assistant. Diagnosis: Severe anemia, , requiring blood transfusion Microcytic anemia Menorrhagia Cholelithiasis Hepatic steatosis Left abdominal mass - unknown etiology History of ITP-status post bone marrow biopsy (patient reports within normal limits) Depression Morbid obesity discharge plan:: - work note. Can return to work tomorrow. - follow up with PCP to review discharge - iron ferrous sulfate 325 mg every other day - folate 1 mg daily Urgent referral for Gynecology Condition at Discharge: Fair Final Diagnosis/Problems List Severe anemia, , requiring blood transfusion Microcytic anemia Menorrhagia Cholelithiasis Hepatic steatosis Left abdominal mass - unknown etiology History of ITP-status post bone marrow biopsy (patient reports within normal limits) Depression Morbid obesity Discharge Disposition: Home Discharge Instruct/Medications Scheduled Escitalopram Oxalate (Escitalopram Oxalate), 17.5 TAB PO DAILY, (Reported) Famotidine (Pepcid Tablet), 1 TAB PO BID Prednisone (Prednisone), 20 MG PO TID Discharge Statement: "Patient was advised to return to the ER or call 911 if any headaches, dizziness, shortness of breath, chest pain, abdominal pain, bleeding, fevers, or worsening of medical condition. Patient was counseled about treatment plan, medications, possible side effects, patientverbalized understanding. All questions were answered to the best of my ability. This discharge took greater then 30 minutes in planning, reviewing documentation, counseling the patient, and discussing with other team members." ASSESSMENT ASSESSMENT Assessment Date of Service: Sep 26, 2025 Billing Provider: ARIANNA BONILLA MD Common Visit Codes: 47017-SVY/OBS DISCH DAY >30min ARIANNA BONILLA MD Sep 26, 2025 11:12
[2025-09-26] MEDS ORDERED: FER325T PO (11:48)
[2025-09-26] MEDS ORDERED: FOLI-119 PO (11:48)
--- NOTE | 2025-09-26 12:07 | DVHSR ---
APPROVED REPORT EXAM: Two-dimensional and M-mode echocardiogram with Doppler and color Doppler. Blood Pressure: 116/62 mmHg INDICATION SOB RISK FACTORS Obesity: Height: 5'0, Weight: 267 DIMENSIONS LVDd4.6 (3.8-5.7cm)LA (2D)4.0 (1.9-4.0cm)Aortic Root2.6 (2.0-3.7cm) LVDs2.8 (2.5-4.0cm)LA (MM) (1.9-4.0cm)Aortic Cusp Exc1.7 (1.5-2.0cm) EF (%) 65.0 (55-70%)Rt. Atrium3.4 (1.9-4.0cm)Asc. Aorta2.6 cm IVSd0.8 (0.7-1.1cm)RV (D)2.8 (1.8-2.4cm) PWd1.0 (0.7-1.1cm) Mitral Valve MitralMitral Stenosis E wave1.21m/sMV Mean GR.mmHg A wave0.69m/sMV Peak GR.mmHg E/A ratio1.82D MVAcm2 DECEL [id number] 1/2 Timems Aortic Valve Aortic ValveAortic Stenosis V10.99m/Luz Maria Mean GR.mmHg V21.61m/Luz Maria Peak GR.10mmHg LVOT Diameter1.8 (1.8-2.4cm)Doppler AVA1.56cm2 Pulmonic Valve V21.15m/s Tricuspid Valve TR Velocity2.41m/s [id number] Other Information Technically limited study due to body habitus.patient position. Conclusion lvef 60% normal rv function no severe valve abnormalities noted
--- NOTE | 2025-09-26 12:57 | DVHINCON2 ---
Date of service: Sep 26, 2025 Referring Physician hospitalist Reason for Consultation abnormal uterine bleeding History of Present Illness pt is admitted for aub,menorrhagia with anemia .pt has itp her sono reveals normal findings. Past Medical History itp,anermia,depression Past Surgical History bone marrow bx Family History na Social History na Patient Family History: Anemia G8 MOTHER Allergies: Coded Allergies: NO KNOWN ALLERGIES (Unverified , 08/30/24) Home Meds Active Scripts Folic Acid (Folic Acid) 1 Mg Tab, 1 MG PO DAILY for 30 Days, #30 TAB 0 Refills Prov:ARIANNA BOINLLA MD 09/26/25 Ferrous Sulfate (Ferrous Sulfate) 325 Mg Tab, 325 MG PO EOD for 30 Days, #30 TAB 0 Refills Prov:ARIANNA BONILLA MD 09/26/25 Famotidine (PEPCID TABLET) 20 Mg Tb, 1 TAB PO BID for 30 Days, #60 TAB 1 Refill Prov:ROBIN NEUMANN MD 09/07/24 Prednisone (Prednisone) 20 Mg Tab, 20 MG PO TID for 20 Days, #120 MG Prov:ROBIN NEUMANN MD 09/07/24 Reported Medications Escitalopram Oxalate (ESCITALOPRAM OXALATE) 20 Mg Tab, 17.5 TAB PO DAILY, #30 TAB 5 Refills 09/24/25 Current Medications Current Medications Medications (Trade) Dose Ordered Sig/Cosmo Route PRN Reason Start Time Stop Time Status Last Admin Pantoprazole Sodium (Protonix) 40 mg BID IV 09/25/25 22:00 09/26/25 09:23 Review of Systems Constitutional: no fever, chill, weight loss HEENT: no eye pain, no hearing loss, no oral lesion, no scleral icterus Heart: pos chest pain, no chest pressure Lung: no cough, pos dyspnea with exertion Abdomen: see HPI : no pain with urination, normal appearing urine Musculoskeletal: no joint pain, no muscle pain Neurological: no seizure, no loss of sensation, no weakness in extremities Pysch: no depression, no anxiety Derm: no rash, no jaundice Vital Signs Vital Signs Date Time Temp Pulse Resp B/P (MAP) Pulse Ox O2 Delivery O2 Flow Rate FiO2 09/26/25 09:00 97.5 75 16 141/86 (104) 99 97.5 09/26/25 08:00 Room Air* 0 21 Physical Exam HEENT: pale conjuctivae NECK: nl CARDIAC: rrr PULMONARY: cta ABDOMEN: soft,nt,no masses pelvic- ext gent wnl,no bleeding noted,cx nl,uterus 7 wks size ext -no cce Labs/Diagnostic Data Labs Test 09/26/25 06:02 09/25/25 01:40 09/24/25 22:00 09/24/25 14:05 Range/Units Hemoglobin 7.5 L 12.2-16.2 g/dL Hematocrit 25.0 #L 36.0-46.0 % White Blood Count 10.4 4.4-10.8 10^3/uL Red Blood Count 4.28 4.0-5.20 10^6/uL Mean Corpuscular Volume 61.4 #L 80.0-100.0 fL Mean Corpuscular Hemoglobin 18.0 L 28.0-32.0 pg Mean Corpuscular Hemoglobin Concent 29.3 L 32.0-36.0 g/dL Red Cell Distribution Width 30.3 H 11.8-14.3 % Platelet Count 470 H 140-450 10^3/uL Mean Platelet Volume 9.0 6.9-10.8 fL Neutrophils (%) (Auto) 79.7 37.0-80.0 % Lymphocytes (%) (Auto) 12.9 10.0-50.0 % Monocytes (%) (Auto) 6.4 0.0-12.0 % Eosinophils (%) (Auto) 0.5 0.0-7.0 % Basophils (%) (Auto) 0.5 0.0-2.0 % Neutrophils # (Auto) 8.3 1.6-8.6 10 ^3/uL Lymphocytes # (Auto) 1.3 0.4-5.4 10 ^3/uL Monocytes # (Auto) 0.7 0-1.3 10 ^3/uL Eosinophils # (Auto) 0 0-0.8 10 ^3/uL Basophils # (Auto) 0.1 0-0.2 10 ^3/uL Nucleated Red Blood Cells 0.7 % Platelet Estimate Increased Hypochromasia (manual) Marked Anisocytosis (manual) Marked Microcytosis Marked Ovalocytes Few Stomatocytes Few Reticulocyte Count (auto) 1.84 H 0.5-1.5 % Haptoglobin 144 33-278 mg/dL Sodium Level 140 136-145 mmol/L Potassium Level 3.8 3.5-5.1 mmol/L Chloride Level 106 98-107 mmol/L Carbon Dioxide Level 25 20-31 mmol/L Anion Gap 9 5-15 Blood Urea Nitrogen 8 L 9-23 mg/dL Creatinine 0.70 0.550-1.02 mg/dL Glomerular Filtration Rate Calc 119 >90 mL/min BUN/Creatinine Ratio 11.4 10.0-20.0 Serum Glucose 89 74-106 mg/dL Lactic Acid Level 0.8 0.4-2.0 mmol/L Calcium Level 8.9 8.7-10.4 mg/dL Iron Level 25 L 50-170 ug/dL Total Iron Binding Capacity 397 250-425 ug/dL Percent Iron Saturation 6.3 L 15-50 % Ferritin 3.7 L 10-291 ng/mL Total Bilirubin 1.3 H 0.2-1.0 mg/dL Aspartate Amino Transferase (AST) 25 13-40 U/L Alanine Aminotransferase (ALT) 17 7-40 U/L Alkaline Phosphatase 100 46-116 U/L Ammonia < 10 L 11-32 umol/L Lactate Dehydrogenase 248 H 120-246 U/L Total Protein 7.0 5.7-8.2 g/dL Albumin 4.2 3.2-4.8 g/dL Folic Acid 20.06 >5.38 ng/mL Urine Color Light-yellow Yellow Urine Clarity Clear Clear Urine pH 6.0 5.0-9.0 Urine Specific [place] 1.025 1.001-1.035 Urine Protein Negative Negative Urine Ketones Negative Negative Urine Blood 3+ H Negative /uL Urine Nitrite Negative Negative Urine Bilirubin Negative Negative Urine Urobilinogen Normal Negative mg/dL Urine Leukocyte Esterase Negative Negative /uL Urine RBC 108 0 - 4 /hpf Urine Microscopic WBC 2 0-5 /HPF Urine Squamous Epithelial Cells Few <5 /hpf Urine Bacteria None seen None Seen /hpf Urine Glucose Normal Normal mg/dL Urine Opiates Screen Pos NEGATIVE Urine Fentanyl Screen Neg NEGATIVE Urine Barbiturates Screen Neg NEGATIVE Urine Phencyclidine Screen Neg NEGATIVE Urine Amphetamines Screen Neg NEGATIVE Urine Benzodiazepines Screen Neg NEGATIVE Urine Cocaine Screen Neg NEGATIVE Urine Cannabinoids Screen Neg NEGATIVE Prothrombin Time 10.6 9.3-11.8 sec Prothrombin Time INR 1.00 0.9-1.15 Activated Partial Thromboplast Time 23.2 L 24.5-34.5 SEC Hemoglobin A1c < 3.8 <5.7 % A1C Phosphorus Level 2.3 L 2.4-5.1 mg/dL Magnesium Level 2.0 1.6-2.6 mg/dL Direct Bilirubin 0.2 <0.3 mg/dL C-Reactive Protein High Sensitivity 0.70 <1.0 mg/dL Triglycerides Level 132 < 150 mg/dL Cholesterol Level 189 < 200 mg/dL LDL Cholesterol 138 H < 100 mg/dL HDL Cholesterol 37 L 40-59 mg/dL Lipase 30 12-53 U/L Vitamin B12 Level 498 211-911 pg/mL Vitamin D 25-Hydroxy 11.3 L 30.0-100 ng/mL Thyroid Stimulating Hormone (TSH) 1.30 0.55-4.78 uIU/mL Beta HCG, Quantitative 1.0 L 1.5-4.2 mIU/mL Primary Diagnosis menorrhagia with anemia itp Plan recommend fu at higher level of care will sign off thank you Plan discussed with: Patient Visit Coding OBGYN Date of Service: Sep 26, 2025 Billing Provider: KARY GIL DO [employer]INE [employer]CH[employer]IC Common Visit Codes: [id number] OBS CARE (HIGH) F[employer]T [employer]ACHINE MECH[employer]IC Consultation Codes: [id number] CONSULT <110MIN KARY GIL DO Sep 26, 2025 12:57
[2025-09-26 13:00] VITALS: BP 120/87; PULSE 65; RESP 17; TEMP 98.4; O2SAT 98
== END 2025-09-26 13:30 | disposition home or self-care (01) | DRG 812 ==
LOC: ER 12:12 → OVERFLOW 17:50 → TELE-WESTW 21:29
PROVIDERS: ADMIT Student in an Organized Health Care Education/Training Program; ATTEND Student in an Organized Health Care Education/Training Program
PROC: 30233N1 Transfusion of Nonautologous Red Blood Cells into Peripheral Vein, Percutaneous Approach (ICD-10-PCS; principal; 2025-09-24)
DX: D50.9 Iron deficiency anemia, unspecified (principal); Z68.42 Body mass index [BMI] 45.0-49.9, adult; D69.3 Immune thrombocytopenic purpura; N91.5 Oligomenorrhea, unspecified; K80.20 Calculus of gallbladder without cholecystitis without obstruction; K76.0 Fatty (change of) liver, not elsewhere classified; R19.00 Intra-abdominal and pelvic swelling, mass and lump, unspecified site; F32.A Depression, unspecified; E66.01 Morbid (severe) obesity due to excess calories; N92.0 Excessive and frequent menstruation with regular cycle
CPT/HCPCS: 36415; 76705; 76856; 80048; 80053; 80061; 80076; 80307; 81001; 82140; 82306; 82607; 82728; 82746; 83010; 83036; 83540; 83550; 83605; 83615; 83690; 83735; 84100; 84443; 84702; 85014; 85018; 85025; 85045; 85610; 85730; 86141; 86850; 86880; 86900; 86901; 86920; 93306; 99291; 99292; G0378; J2405; J2470